=== PATIENT | male | born 1995 ===

== ENCOUNTER 2020-12-04 09:15 | Outpatient (RCR) | payer OTHER, SELFPAY ==
[2020-11-19 11:46] VITALS: BMI 24.4
--- NOTE | 2020-11-19 13:23 | PC.NURSE ---
Case opened in treatment team
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
--- NOTE | 2020-11-20 13:08 | P.PNPSP_ITS ---
Subjective Subjective Date of Service: 11/20/20 Reason For Visit: MDD, OCD Medical Problems Affecting Mental Status: No Interim History: spoke with patient today. We had discussed adding a low-dose atypical antipsychotic such as Risperdal or Abilify when we met yesterday. We had also discussed fluvoxamine dose seen yesterday as well. Patient had reported when he left [facility] he had been on 150 mg daily, but then called them when he had an agitated 1 day and they told him he could lower dose to 100 mg daily. Patient states that today he would like to be started on Abilify 2 mg, and would like his dose of fluvoxamine to be restored to 150 mg daily. He states that he came to this decision upon researching the medications with his mother last evening, and after careful consideration he would like these changes. We reviewed side effects and dosing. Scripts were sent to his pharmacy, [facility] on [address] in [place]. Plan is to follow up in 1 week, sooner if needed. Medication Compliance: Yes Side effects from medications: No Attending Groups: Yes Review of Systems Review of Systems A full review of systems was completed and was negative, except for pertinent positives as noted in admission note yesterday. Mental Status Exam Mental Status Exam Patient Appearance: Appropriate Patient Orientation: Person, Place, Time and Situation Level of Consciousness: Awake, Appropriate and Alert Patient Behavior: Appropriate Mood Description: Appropriate Affect Description: Appropriate Speech Pattern: Clear and Appropriate Memory Description: Intact Hallucinations: None Delusions: Not Present Thought Content: positive for Intact Depressive Symptoms: Increased Anxiety Judgement: Good Diagnostics Vital Signs (24Hr): Body Mass Index 24.4 Assessment & Plan Assessment & Plan (1) OCD (obsessive compulsive disorder): Status: Acute Code(s): F42.9 - Obsessive-compulsive disorder, unspecified Assessment and Plan: Patient requested to meet with this provider today via telephone. He reports that he had considered this web content writer's suggestions of starting a low-dose antipsychotic in order to have help with intrusive thoughts and OCD symptoms. He also had considered wishing to return to his 150 mg dose of fluvoxamine. Patient states that today he would like to be started on Abilify 2 mg, and would like his dose of fluvoxamine to be restored to 150 mg daily. He states that he came to this decision upon researching the medications with his mother last evening, and after careful consideration he would like these changes. We reviewed side effects and dosing. Scripts were sent to his pharmacy, [facility] on [address] in [place]. Plan is to follow up in 1 week, sooner if needed. Patient educated on: diagnosis, medication risk/benefits and therapeutic strategies Informed Consent: understands Reason for contiued partial hosp. stay Substantial Risk for: med/psych decompensation Certification I certify that partial hospital treatment is medically necessary due to the symptoms and problems resulting from the patient's mental illness and the failure to treat the patient at the partial hospital level of care would likely result in the patient requiring inpatient psychiatric care which could not be prevented at a less intensive level of care. Greater than 50% of the session was spent on counseling and/or coordination of care Discharge Plan Discharge Attending provider: Trever Linares Medications: New fluvoxamine 50 mg tablet 150 mg PO DAILY 7 Days Qty: 21 RF: 0 aripiprazole [Abilify] 2 mg tablet 2 mg PO DAILY 7 Days Qty: 7 RF: 0 Discontinued fluvoxamine 50 mg Tablet 100 mg PO BEDTIME RF: 0 No Action hydroxyzine HCl 50 mg Tablet 50 mg PO BID PRN (Reason: anxiety, insomnia) RF: 0 dextroamphetamine-amphetamine 20 mg Tablet 20 mg PO DAILY RF: 0 Telehealth Telehealth Location of provider rendering services: practice address Location of patient: address on file Patient Identification confirmed using: Name, : Yes Telehealth method: voice only Patient verbally consented to treatment: Yes Patient verbally consented to billing insurance company: Yes Patient informed of any privacy concerns related to visit: Yes Time spent with patient (mins): 10
--- NOTE | 2020-11-25 13:15 | HO.PHPPROGNO ---
Subjective Subjective Date of Service: 11/25/20 Reason For Visit: MDD, OCD Interim History: The patient noticed an improvement of his mood and attention spam with the low dose of Abilify 2 mg. He is currently content with his medications. Review of Systems Review of Systems Yes all other systems are reviewed and are negative Mental Status Exam Mental Status Exam Patient Appearance: Well Grooomed Patient Orientation: Person, Place, Time and Situation Level of Consciousness: Awake and Appropriate Patient Behavior: Appropriate and Cooperative Mood Description: Calm Affect Description: Relaxed Patient Cognition Impaired: No Ability to Follow Directions: Good Speech Pattern: Clear Hallucinations: None Delusions: Not Present Thought Process: Goal Oriented Thought Content: positive for Intact Judgement: Fair Diagnostics Vital Signs (24Hr): Body Mass Index 24.4 Assessment & Plan Assessment & Plan (1) ADHD (attention deficit hyperactivity disorder): Status: Acute Code(s): F90.9 - Attention-deficit hyperactivity disorder, unspecified type Assessment and Plan: Young adult male referred to [facility] as an step-down from inpatient after he deteriorated after coming back from college with MDD and ADHD. He recently had change with a low dose of Abilify with good response. Plan: Keep same treatment (2) PTSD (post-traumatic stress disorder): Status: Acute Code(s): F43.10 - Post-traumatic stress disorder, unspecified (3) MDD (major depressive disorder): Status: Acute Code(s): F32.9 - Major depressive disorder, single episode, unspecified (4) OCD (obsessive compulsive disorder): Status: Acute Code(s): F42.9 - Obsessive-compulsive disorder, unspecified Certification I certify that partial hospital treatment is medically necessary due to the symptoms and problems resulting from the patient's mental illness and the failure to treat the patient at the partial hospital level of care would likely result in the patient requiring inpatient psychiatric care which could not be prevented at a less intensive level of care. Greater than 50% of the session was spent on counseling and/or coordination of care Discharge Plan Discharge Attending provider: Trever Linares Medications: Continued fluvoxamine 50 mg tablet 150 mg PO DAILY 7 Days Qty: 21 RF: 1 aripiprazole [Abilify] 2 mg tablet 2 mg PO DAILY 7 Days Qty: 7 RF: 1 Discontinued fluvoxamine 50 mg Tablet 100 mg PO BEDTIME RF: 0 No Action hydroxyzine HCl 50 mg Tablet 50 mg PO BID PRN (Reason: anxiety, insomnia) RF: 0 dextroamphetamine-amphetamine 20 mg Tablet 20 mg PO DAILY RF: 0 Telehealth Telehealth Location of provider rendering services: practice address Location of patient: address on file Patient Identification confirmed using: Name, : Yes Telehealth method: video Patient verbally consented to treatment: Yes Patient verbally consented to billing insurance company: Yes Patient informed of any privacy concerns related to visit: No Time spent with patient (mins): 15
--- NOTE | 2020-11-30 16:21 | HO.PHPPROGNO ---
Subjective Subjective Date of Service: 11/30/20 Reason For Visit: MDD, OCD Subjective Notes: [place] Warning Guardianship: No Medical Problems Affecting Mental Status: No Interim History: Bryant reports that he feels improvement in his overall mental health from last week. He states that the Abilify 2 mg daily is helping manage his depressive symptoms. He reports that the fluvoxamine is helping manage his symptoms of depression and OCD. Reports less intrusive thoughts this week when compared to last week. He states that the combination of these 2 medications is working well. He does continue with medication for ADHD, as well as hydroxyzine p.r.n.. He is not requesting any type of med changes at this time, as he feels this is a good regimen. No safety concerns, no other issues or complaints. Patient did request a script for Xanax, which he states he would like to have in case he becomes anxious. Patient education was provided regarding anxiety, current medications, alternative coping strategies, and conservative use of benzodiazepines. He stated that he understood, no script was provided. Medication Compliance: Yes Side effects from medications: No Attending Groups: Yes Review of Systems Review of Systems Yes all other systems are reviewed and are negative Constitutional: Reports no additional constitutional complaints Mental Status Exam Mental Status Exam Narrative: Well groomed, well-nourished male, in no apparent distress. Appears stated age. Erect posture, sitting up in chair, able to converse fully with this travel writer. Patient Appearance: Well Grooomed and Appropriate Patient Orientation: Person, Place, Time and Situation Level of Consciousness: Awake, Appropriate and Alert Patient Behavior: Appropriate and Cooperative Mood Description: Calm, Appropriate and Anxious Affect Description: Appropriate and Anxious Patient Cognition Impaired: No Ability to Follow Directions: Excellent Speech Pattern: Clear Memory Description: Intact Hallucinations: None Delusions: Not Present Thought Process: Intact, Goal Oriented and Linear Thought Content: positive for Intact, positive for Obsessional Thoughts (Reports a decrease in obsessional thoughts since the addition of Abilify to Luvox.) and positive for Suicidal Ideation (Denies any type of SI at this time.) Depressive Symptoms: Increased Anxiety Judgement: Good Judgement and Insight: Judgment and insight appear improving, grossly intact. Diagnostics Vital Signs (24Hr): Body Mass Index 24.4 Assessment & Plan Assessment & Plan (1) MDD (major depressive disorder): Status: Acute Code(s): F32.9 - Major depressive disorder, single episode, unspecified Assessment and Plan: Patient continues with some depressive and anxiety symptoms, although does report he feels some improvement when compared to a week ago. Plan is to continue current medications, no changes at this time. Patient does not need refills at this time. (2) OCD (obsessive compulsive disorder): Status: Acute Code(s): F42.9 - Obsessive-compulsive disorder, unspecified Assessment and Plan: Patient reports current fluvoxamine does appears to be helping manage symptoms, and that they are beginning to subside. Overall states he feels improved when compared to 1 week ago. Plan is to continue medications as is for now, no refills needed at this time. Patient educated on: diagnosis, medication risk/benefits and therapeutic strategies Informed Consent: understands Reason for contiued partial hosp. stay Substantial Risk for: inability to function and med/psych decompensation Certification I certify that partial hospital treatment is medically necessary due to the symptoms and problems resulting from the patient's mental illness and the failure to treat the patient at the partial hospital level of care would likely result in the patient requiring inpatient psychiatric care which could not be prevented at a less intensive level of care. Greater than 50% of the session was spent on counseling and/or coordination of care Discharge Plan Discharge Attending provider: Trever Linares Medications: Continued fluvoxamine 50 mg tablet 150 mg PO DAILY 7 Days Qty: 21 RF: 1 aripiprazole [Abilify] 2 mg tablet 2 mg PO DAILY 7 Days Qty: 7 RF: 1 Discontinued fluvoxamine 50 mg Tablet 100 mg PO BEDTIME RF: 0 No Action hydroxyzine HCl 50 mg Tablet 50 mg PO BID PRN (Reason: anxiety, insomnia) RF: 0 dextroamphetamine-amphetamine 20 mg Tablet 20 mg PO DAILY RF: 0 Telehealth Telehealth Location of provider rendering services: practice address Location of patient: address on file Patient Identification confirmed using: Name, : Yes Telehealth method: video Patient verbally consented to treatment: Yes Patient informed of any privacy concerns related to visit: Yes Time spent with patient (mins): 15
--- NOTE | 2020-12-03 14:27 | HO.PHPPROGNO ---
Subjective Subjective Date of Service: 12/03/20 Reason For Visit: MDD, OCD Subjective Notes: [place] Warning Guardianship: No Medical Problems Affecting Mental Status: No Interim History: Bryant reports that he believes his depressive and OCD symptoms have improved since he began the [facility] program, although they are still present to some degree. He denies any thoughts of harm to self or others. He does report that he is having intermittent weird tension/ pressure in the left side of my face , which he is attributing to days when he has increased stress and anxiety. We did discuss medications Adderall and Abilify, and side effects of each medication, Specifically any type akasthesia or motor tics. He stated that he understood, and believes that this is simply when he feels himself under more pressure. He was advised to contact his outpatient provider if this continues or worsens. No visible movements or tics noted during encounter. He denies any other concerns. No safety concerns. He states that he feels ready for discharge from [facility] tomorrow. Medication Compliance: Yes Side effects from medications: No (discussed possible S/E, pt does not believe he has any. ) Attending Groups: Yes Review of Systems Review of Systems Yes all other systems are reviewed and are negative Reports Neuro-related abnormal movements (c/o intermittent tension/pressure on L side yazdanism, r/t anxiety) Mental Status Exam Mental Status Exam Patient Appearance: Well Grooomed Patient Orientation: Person, Place, Time and Situation Level of Consciousness: Awake, Appropriate and Alert Patient Behavior: Appropriate, Cooperative and Good Eye Contact Mood Description: Appropriate and Anxious (slight anxiety noted. ) Affect Description: Apathetic, Appropriate and Anxious (slight anxiety reported and noted. ) Patient Cognition Impaired: No Ability to Follow Directions: Excellent Speech Pattern: Clear, Appropriate and Coherent Memory Description: Intact Hallucinations: None Delusions: Not Present Thought Process: Intact Thought Content: positive for Obsessional Thoughts (continues with some obsessional thoughts, although decreased.) and positive for Suicidal Ideation ( Denies any type of thoughts of harm to self or others.) Depressive Symptoms: Increased Anxiety Judgement: Good Diagnostics Vital Signs (24Hr): Body Mass Index 24.4 Assessment & Plan Assessment & Plan (1) ADHD (attention deficit hyperactivity disorder): Qualifiers: Attention deficit-hyperactivity disorder type: unspecified Qualified Code(s): F90.9 - Attention-deficit hyperactivity disorder, unspecified type Status: Acute Code(s): F90.9 - Attention-deficit hyperactivity disorder, unspecified type Assessment and Plan: Discussed medication Adderall and potential side effects. [place] in [place] of changing providers to somebody local. (2) OCD (obsessive compulsive disorder): Qualifiers: Obsessive-compulsive disorder type: mixed obsessional thoughts and acts Qualified Code(s): F42.2 - Mixed obsessional thoughts and acts Status: Acute Code(s): F42.9 - Obsessive-compulsive disorder, unspecified Assessment and Plan: Patient reports improvement in OCD symptoms with fluvoxamine 150 mg daily. Refill script sent to his pharmacy for 30 day supply. (3) MDD (major depressive disorder): Qualifiers: Major depression recurrence: recurrent Active/Remission status: currently active Major depression episode severity: unspecified Qualified Code(s): F33.9 - Major depressive disorder, recurrent, unspecified Status: Acute Code(s): F32.9 - Major depressive disorder, single episode, unspecified Assessment and Plan: Patient reports overall he is experiencing less depressive symptoms. Reports he believes the Abilify 2 mg is helping, especially with decreased intrusive thoughts. No safety concerns at this time. Refill of Abilify 2 mg, 30 day supply sent to pharmacy. Patient has intake appointment scheduled for MondayDecember 07 at [facility]. Patient educated on: diagnosis, medication risk/benefits and therapeutic strategies Informed Consent: understands Reason for contiued partial hosp. stay Substantial Risk for: stable for discharge Certification I certify that partial hospital treatment is medically necessary due to the symptoms and problems resulting from the patient's mental illness and the failure to treat the patient at the partial hospital level of care would likely result in the patient requiring inpatient psychiatric care which could not be prevented at a less intensive level of care. Greater than 50% of the session was spent on counseling and/or coordination of care Discharge Plan Discharge Attending provider: Trever Linares Additional Instructions: Intake appointment made for November @ 1200 with [facility] telehealth Medications: New aripiprazole [Abilify] 2 mg tablet 2 mg PO DAILY 30 Days Qty: 30 RF: 0 fluvoxamine 50 mg tablet 150 mg PO DAILY 30 Days Qty: 90 RF: 0 Discontinued fluvoxamine 50 mg Tablet 100 mg PO BEDTIME RF: 0 No Action hydroxyzine HCl 50 mg Tablet 50 mg PO BID PRN (Reason: anxiety, insomnia) RF: 0 dextroamphetamine-amphetamine 20 mg Tablet 20 mg PO DAILY RF: 0 Stand Alone Forms: Patient Portal Discharge page Telehealth Telehealth Location of provider rendering services: practice address Location of patient: address on file Patient Identification confirmed using: Name, : Yes Telehealth method: video Patient verbally consented to treatment: Yes Patient verbally consented to billing insurance company: Yes Patient informed of any privacy concerns related to visit: Yes Time spent with patient (mins): 15
--- NOTE | 2020-12-07 11:33 | PC.NURSE ---
Patient discharge 12/04/2020. Patient met with Monique Henderson APRN re: medications, discharge. Patient in agreement he is ready for discharge. No safety concerns.
== END 2020-12-07 07:51 | disposition home or self-care (01) ==
LOC: HO.PHPA 09:15
PROVIDERS: Visit Provider Psychiatry & Neurology Psychiatry
DX: F33.9 Major depressive disorder, recurrent, unspecified (principal); F42.9 Obsessive-compulsive disorder, unspecified; F43.10 Post-traumatic stress disorder, unspecified; F90.9 Attention-deficit hyperactivity disorder, unspecified type; Z79.899 Other long term (current) drug therapy
CPT/HCPCS: 90791; 90853